=== PATIENT | female | born 1970 | race Caucasian/White ===

== ENCOUNTER 2021-03-02 19:22 | Emergency (ER) | payer MEDICARE ==
[~2021-03-02 19:22] MED LIST: PROTONIX 40 MG40 M1 PO
== END 2021-03-02 20:08 | disposition home or self-care (01) ==
LOC: ER1 19:22
DX: U07.1 COVID-19 (principal); M06.9 Rheumatoid arthritis, unspecified; I10 Essential (primary) hypertension; Z90.710 Acquired absence of both cervix and uterus; Z79.899 Other long term (current) drug therapy
CPT/HCPCS: 99284; U0002

== ENCOUNTER 2021-03-03 09:21 | Emergency (ER) | payer MEDICARE ==
[~2021-03-03] VITALS: Ht 170.2 cm; Wt 79.4 kg
== END 2021-03-03 13:16 | disposition home or self-care (01) ==
LOC: ER1 09:21
DX: Z23 Encounter for immunization (principal); U07.1 COVID-19; Z88.0 Allergy status to penicillin; Z90.710 Acquired absence of both cervix and uterus
CPT/HCPCS: 99284; M0243

== ENCOUNTER 2021-03-05 09:42 | Emergency (ER) | payer MEDICARE ==
[2021-03-05 11:19] LABS: HEMOGLOBIN 13.2 gm/dl (12.3-15.3); RED BLOOD COUNT 4.18 M/UL (4.00-5.10); WHITE BLOOD COUNT 4.6 K/UL (4.5-11.0)
[2021-03-05 11:45] LABS: BUN/CREATININE RATIO 15 (0-10)
== END 2021-03-05 13:22 | disposition home or self-care (01) ==
LOC: ER1 09:42
PROVIDERS: Nurse Practitioner
DX: U07.1 COVID-19 (principal); J12.82 Pneumonia due to coronavirus disease 2019; I10 Essential (primary) hypertension; Z90.710 Acquired absence of both cervix and uterus; Z88.0 Allergy status to penicillin
CPT/HCPCS: 71046; 80053; 81001; 85025; 99285

== ENCOUNTER → 2021-03-20 | Outpatient (CLI) | payer MEDICARE | LOC: KOH-I 10:11 | DX: J18.9 Pneumonia, unspecified organism (principal) | CPT/HCPCS: 71046 ==

== ENCOUNTER → 2021-04-01 | Outpatient (CLI) | payer MEDICARE | LOC: KOH-I 14:32 | DX: J18.9 Pneumonia, unspecified organism (principal) | CPT/HCPCS: 71046 ==

== ENCOUNTER → 2021-05-08 | Outpatient (CLI) | payer MEDICARE | LOC: KOH-I 11:16 | DX: J18.9 Pneumonia, unspecified organism (principal) | CPT/HCPCS: 71046 ==

== ENCOUNTER → 2021-05-29 | Outpatient (CLI) | payer MEDICARE | LOC: KOH-I 13:56 | DX: M54.9 Dorsalgia, unspecified (principal); M48.54XA Collapsed vertebra, not elsewhere classified, thoracic region, initial encounter for fracture | CPT/HCPCS: 72070; 72100 ==

== ENCOUNTER → 2021-06-02 | Outpatient (CLI) | payer MEDICARE | LOC: KOH-I 15:45 | DX: S22.070A Wedge compression fracture of T9-T10 vertebra, initial encounter for closed fracture (principal) | CPT/HCPCS: 72146 ==

== ENCOUNTER → 2021-08-13 | Outpatient (CLI) | payer MEDICARE | LOC: KOH-I 14:14 | DX: S22.070D Wedge compression fracture of T9-T10 vertebra, subsequent encounter for fracture with routine healing (principal); X58.XXXD Exposure to other specified factors, subsequent encounter | CPT/HCPCS: 72070 ==

== ENCOUNTER → 2021-09-08 | Outpatient (CLI) | payer MEDICARE | LOC: KOH-I 09:50 | DX: S22.070D Wedge compression fracture of T9-T10 vertebra, subsequent encounter for fracture with routine healing (principal) | CPT/HCPCS: 72146 ==

== ENCOUNTER → 2021-12-16 | Day surgery (SDC) | payer MEDICARE ==
[~2021-12-16] MED LIST changes: +AMLODIPINE BESYL5 MG PO; +CARVEDILOL3.125 MG PO; +ENBREL50 MG/1 M1 SQ; +HYDROXYCHLOROQ200 MG PO; +PHYSICIANS1000 MCG/1 INJ; +SPIRONOLACTONE25 MG PO; +VITAMIN D21250 MCG PO
== END | disposition home or self-care (01) ==
LOC: OR 08:24
DX: K22.2 Esophageal obstruction (principal); K44.9 Diaphragmatic hernia without obstruction or gangrene
CPT/HCPCS: J2704; J3010; J7040